=== PATIENT | female | born 1955 | race Caucasian/White ===

== ENCOUNTER 2017-12-31 10:49 | Outpatient (CLI) | payer MEDICARE ==
[2017-12-31 12:15] LABS: Hemoglobin 14.9 g/dL (12.0-16.0); Mean Corpuscular HGB CONC 32.8 g/dL (32.0-36.0); Mean Corpuscular Hemoglobin 28.8 pg (27.0-31.0); Mean Corpuscular Volume 87.8 fl (81.0-99.0); Mean Platelet Volume 8.8 fL (7.4-10.4); Platelet Count 231 thou/uL (130-400); RBC Distribution Width 12.7 % (11.5-14.5); Red Blood Cell (RBC) Count 5.19 mill/uL (4.20-5.40); White Blood Cell (WBC) Count 8.8 thou/uL (4.8-10.8)
[2017-12-31 12:27] LABS: Prothrombin Time 13.7 SEC (12.0-14.7)
[2017-12-31 12:38] LABS: ALT (SGPT) 17 U/L (8-55); AST (SGOT) 14 U/L (5-34); Alkaline Phosphatase 104 U/L (40-150); Anion Gap 10 mmol/L (10-20); BUN (Urea Nitrogen) 13 mg/dL (9.8-20.1); Bilirubin, Total 0.5 mg/dL (0.2-1.2); Calc. Creatinine Clearance 0 mL/min (70-130); Calcium 9.7 mg/dL (7.8-10.44); Carbon Dioxide 26 mmol/L (23-31); Cardiac Risk 2.8 (Less than 4.5); Chloride 107 mmol/L (98-107); Cholesterol 105 mg/dl (< 200 Desired); Estimated GFR-MDRD 78; Globulin 3.4 g/dL (2.4-3.5); Glucose 115 mg/dL (80-115); HDL Cholesterol 38 mg/dL (>60 Neg Risk); LDL Cholesterol, Calculated 49 mg/dL; Potassium 4.3 mmol/L (3.5-5.1); Protein, Total 7.4 g/dL (6.0-8.3); Sodium 139 mmol/L (136-145); Triglycerides 92 mg/dL (Less than 150)
--- NOTE | 2017-12-31 13:45 | RAD ---
CHEST 2 VIEWS: HISTORY: Preop. FINDINGS: Cardiac silhouette and pulmonary vasculature are unremarkable. Mediastinum is midline. There is no confluent airspace consolidation, pneumothorax, or pleural fluid evident. IMPRESSION: No active cardiopulmonary abnormalities are demonstrated. POS: [facility]
--- NOTE | 2018-01-01 08:10 | EKG ---
Test Reason : Blood Pressure : / mmHG Vent. Rate : 057 BPM Atrial Rate : 057 BPM P-R Int : 192 ms QRS Dur : 104 ms QT Int : 446 ms P-R-T Axes : 065 -24 005 degrees QTc Int : 434 ms Sinus bradycardia Cannot rule out Anterior infarct , age undetermined Abnormal ECG When compared with ECG of 11-JUL-2013 07:49, No significant change was found Confirmed by DR. Thuy GOMES ([id number]) on 01/01/2018 8:10:42 AM Referred By: LEISA Confirmed By:DR. Thuy GOMES
== END 2017-12-31 10:50 | disposition home or self-care (01) ==
LOC: LABBT 10:49
PROVIDERS: ATTEND Internal Medicine Cardiovascular Disease
DX: Z01.818 Encounter for other preprocedural examination (principal); R94.39 Abnormal result of other cardiovascular function study
CPT/HCPCS: 71046; 80053; 80061; 85027; 85610; 85730; 93005; 93010

== ENCOUNTER 2018-01-03 05:59 | Day surgery (SDC) | payer MEDICARE ==
[2017-12-31 11:12] VITALS: BMI 45.1
[2018-01-03] MEDS ORDERED: Lidocaine 1% (PF) 30 ML VIAL ONE (06:35)
[2018-01-03] MEDS ORDERED: Heparin 10,000 UNITS/1 ML VIAL ONE (06:39)
[2018-01-03] MEDS ORDERED: Midazolam HCl 2 mg/2 ml Vial ONE (07:12)
[2018-01-03] MEDS ORDERED: Fentanyl 100 MCG/2 ML VIAL ONE (07:12)
[2018-01-03] MEDS ORDERED: Nitroglycerin 100MG/250ML BOT 250 ML ONE (07:26)
[2018-01-03] MEDS ORDERED: Nitroglycerin 4.9 GM Bottle ONE (07:32)
[2018-01-03] MEDS ORDERED: hydrALAZINE 20 MG/ML VIAL ONE (07:35)
[2018-01-03] MEDS ORDERED: Bivalirudin 250 MG VIAL ONE (07:59)
[2018-01-03] MEDS ORDERED: Iopamidol 370 76% 100 ML VIAL ONE ×2 (09:34)
[2018-01-03] MEDS ORDERED: traMADol HCl 50 MG TAB ONE (13:11)
== END 2018-01-03 17:58 | disposition home or self-care (01) ==
LOC: CCL 05:59
PROVIDERS: ATTEND Internal Medicine Cardiovascular Disease
PROC: 4A023N7 Measurement of Cardiac Sampling and Pressure, Left Heart, Percutaneous Approach (ICD-10-PCS; principal; 2018-01-03)
PROC: B2151ZZ Fluoroscopy of Left Heart using Low Osmolar Contrast (ICD-10-PCS; 2018-01-03)
DX: I25.10 Atherosclerotic heart disease of native coronary artery without angina pectoris (principal); E78.00 Pure hypercholesterolemia, unspecified; I10 Essential (primary) hypertension; F41.9 Anxiety disorder, unspecified; G47.30 Sleep apnea, unspecified; K75.81 Nonalcoholic steatohepatitis (NASH); M35.9 Systemic involvement of connective tissue, unspecified; J45.909 Unspecified asthma, uncomplicated; M54.9 Dorsalgia, unspecified; G89.29 Other chronic pain; E11.9 Type 2 diabetes mellitus without complications; E66.9 Obesity, unspecified; Z68.42 Body mass index [BMI] 45.0-49.9, adult; Z79.4 Long term (current) use of insulin; Z79.02 Long term (current) use of antithrombotics/antiplatelets; Z79.82 Long term (current) use of aspirin; Z79.899 Other long term (current) drug therapy; Z88.8 Allergy status to other drugs, medicaments and biological substances; Z88.2 Allergy status to sulfonamides; Z88.0 Allergy status to penicillin; Z88.5 Allergy status to narcotic agent; Z98.61 Coronary angioplasty status
CPT/HCPCS: 82962; 85347 ×2; 93458; 93571; C1769 ×2; C1887; 36416; 99152; 99153; J0153; J0360; J0583; J1644; J2001; J2250; J3010

== ENCOUNTER 2019-03-08 12:27 | Outpatient (CLI) | payer MEDICARE ==
--- NOTE | 2019-03-08 13:45 | RAD ---
PELVIC RADIOGRAPH: 03/08/2019 PROVIDED CLINICAL HISTORY: Low back pain. FINDINGS: No evidence for fracture or other acute osseous abnormality. Alignment appears anatomic. Joint spac es appear preserved. IMPRESSION: No evidence for an acute osseous abnormality or significant arthropathy. POS: [facility]
--- NOTE | 2019-03-08 14:37 | RAD ---
LUMBAR SPINE THREE VIEWS: 03/08/2019 HISTORY: Low back pain. FINDINGS: Five lumbar type vertebral bodies are present. Pedicles appear intact on frontal imaging. Bilateral facet hypertrophy noted throughout the lumbar spine, most prominent at L4-L5 and at L5-S1. No anter olisthesis or retrolisthesis. No acute fracture or dislocation. There is mild disk space narrowing at L3-L4. There is posterior osteophyte formation at the L3-L4 level. IMPRESSION: Degenerative changes, as above. No acute osseous abnormality. POS: [facility]
== END 2019-03-08 12:28 | disposition home or self-care (01) ==
LOC: BICRAD 12:27
PROVIDERS: ATTEND Specialist
DX: M54.5 Low back pain (principal); M47.816 Spondylosis without myelopathy or radiculopathy, lumbar region
CPT/HCPCS: 72100; 72170

== ENCOUNTER 2021-02-18 13:19 | Outpatient (CLI) | payer MEDICARE | END 2021-02-18 13:20 | disposition home or self-care (01) | LOC: BICRAD 13:19 | PROVIDERS: ATTEND Specialist | DX: M54.9 Dorsalgia, unspecified (principal); M47.818 Spondylosis without myelopathy or radiculopathy, sacral and sacrococcygeal region; M47.814 Spondylosis without myelopathy or radiculopathy, thoracic region; M47.816 Spondylosis without myelopathy or radiculopathy, lumbar region | CPT/HCPCS: 72072; 72100; 72202; 72220 ==

== ENCOUNTER 2022-11-04 14:52 | Outpatient (CLI) | payer MEDICARE | END 2022-11-04 14:53 | disposition home or self-care (01) | LOC: BICMAMMO 14:52 | PROVIDERS: ATTEND Specialist | DX: Z12.31 Encounter for screening mammogram for malignant neoplasm of breast (principal); R92.1 Mammographic calcification found on diagnostic imaging of breast | CPT/HCPCS: 77063; 77067 ==

== ENCOUNTER 2024-10-19 08:08 | Outpatient (CLI) | payer MEDICARE | END 2024-10-19 08:09 | disposition home or self-care (01) | LOC: BICULT 08:08 | PROVIDERS: ATTEND Internal Medicine Gastroenterology | DX: K74.60 Unspecified cirrhosis of liver (principal); K75.81 Nonalcoholic steatohepatitis (NASH); K31.A0 Gastric intestinal metaplasia, unspecified; R10.11 Right upper quadrant pain; K59.00 Constipation, unspecified; K76.0 Fatty (change of) liver, not elsewhere classified; K80.20 Calculus of gallbladder without cholecystitis without obstruction; R16.1 Splenomegaly, not elsewhere classified | CPT/HCPCS: 76705 ==

== ENCOUNTER 2024-10-19 09:00 | Outpatient (CLI) | payer MEDICARE | END 2024-10-19 09:01 | disposition home or self-care (01) | LOC: BICMAMMO 09:00 | PROVIDERS: ATTEND Specialist | DX: Z12.31 Encounter for screening mammogram for malignant neoplasm of breast (principal) | CPT/HCPCS: 77063; 77067 ==

== ENCOUNTER 2025-06-15 13:17 | Outpatient (CLI) | payer MEDICARE | END 2025-06-15 13:18 | disposition home or self-care (01) | LOC: BICULT 13:17 | PROVIDERS: ATTEND Internal Medicine Gastroenterology | DX: K75.81 Nonalcoholic steatohepatitis (NASH) (principal); K74.60 Unspecified cirrhosis of liver | CPT/HCPCS: 76705 ==

== ENCOUNTER 2025-06-26 08:33 | Outpatient (CLI) | payer MEDICARE | END 2025-06-26 08:34 | disposition home or self-care (01) | LOC: BICCT 08:33 | PROVIDERS: ATTEND Orthopaedic Surgery | DX: S22.009A Unspecified fracture of unspecified thoracic vertebra, initial encounter for closed fracture (principal); S32.009A Unspecified fracture of unspecified lumbar vertebra, initial encounter for closed fracture; M48.061 Spinal stenosis, lumbar region without neurogenic claudication; M25.78 Osteophyte, vertebrae | CPT/HCPCS: 72128; 72131 ==